=== PATIENT | male | born 1985 | race Caucasian/White ===

== ENCOUNTER 2017-01-26 12:27 | Outpatient (CLI) | payer OTHER ==
[2017-01-26 13:11] LABS: Bilirubin Negative (Negative); Blood, Urine Trace (Negative); Clarity Clear (Clear); Glucose, Urine (Dipstick) Negative (Negative); Leukocyte Negative (Negative); Nitrite Negative (Negative); Protein, Urine (Dipstick) Negative (Neg-Trace); Specific Gravity, Urine 1.025 (1.005-1.030)
[2017-01-26 13:12] LABS: #Basophils 0.1 thou/uL (0.0-0.2); #Eosinphils 0.2 thou/uL (0.0-0.7); #Lymphocytes 1.5 thou/uL (1.20-3.40); #Monocytes 0.5 thou/uL (0.11-0.59); #Neutrophils 3.5 thou/uL (1.40-6.50); %Basophils 1.1 % (0.0-1.0); %Eosinophils 3.9 % (0.0-10.0); %Lymphocytes 26.1 % (21.0-51.0); %Monocytes 8.8 % (0.0-10.0); Hemoglobin 15.9 g/dL (14.0-18.0); Mean Corpuscular HGB CONC 35.3 g/dL (32.0-36.0); Mean Corpuscular Hemoglobin 30.4 pg (27.0-31.0); Mean Corpuscular Volume 86.2 fl (80.0-94.0); Mean Platelet Volume 7.1 fL (7.4-10.4); Platelet Count 246 thou/uL (130-400); RBC Distribution Width 11.4 % (11.5-14.5); Red Blood Cell (RBC) Count 5.23 mill/uL (4.70-6.10); White Blood Cell (WBC) Count 5.9 thou/uL (4.8-10.8)
[2017-01-26 13:24] LABS: ALT (SGPT) 10 U/L (0-55); AST (SGOT) 19 U/L (5-34); Albumin 4.3 g/dL (3.5-5.0); Alkaline Phosphatase 64 U/L (40-150); Anion Gap 14 mmol/L (10-20); BUN (Urea Nitrogen) 10 mg/dL (8.9-20.6); Bilirubin, Total 0.4 mg/dL (0.2-1.2); Calc. Creatinine Clearance 0 mL/min (70-130); Calcium 8.9 mg/dL (7.8-10.44); Carbon Dioxide 24 mmol/L (22-29); Chloride 105 mmol/L (98-107); Estimated GFR-MDRD Greater than 90; Globulin 2.5 g/dL (2.4-3.5); Glucose 92 mg/dL (70-105); Protein, Total 6.8 g/dL (6.0-8.3); Sodium 139 mmol/L (136-145)
[2017-01-26 13:55] LABS: RBC/HPF 0-3 HPF (0-3)
[2017-01-26 13:56] LABS: Bacteria/HPF Rare-Few HPF (None Seen); Squamous Epithelial 0-3 HPF (0-3); WBC/HPF 0-3 HPF (0-3)
[2017-01-26 17:28] LABS: HBCM Index 0.06 S/CO (0-0.79); HBSAg Index 0.35 S/CO (0-0.99); Hep A IgM AB Non-Reactive (NonReactive); Hep A IgM S/CO 0.12 S/CO (0-0.79); Hep B Surf Ag Non-Reactive S/CO (NonReactive); Hep C IgG Ab Non-Reactive (NonReactive); Hep C Index 0.25 S/CO (0-0.79); Hepatitis B Core IGM Abs Non-Reactive (NonReactive)
== END 2017-01-26 12:28 | disposition home or self-care (01) ==
LOC: MADLABBHPM 12:27
PROVIDERS: ATTEND Family Medicine
DX: R10.13 Epigastric pain (principal)
CPT/HCPCS: 36415; 80053; 80074; 81001; 85025; 86677; 87086

== ENCOUNTER 2020-08-15 18:46 | Emergency (ER) | payer OTHER, SELFPAY ==
[2020-08-15] MEDS ORDERED: Boostrix 0.5 ML (Tdap) VIAL ONE (19:26)
[2020-08-15] MEDS ORDERED: Acetaminophen 500 MG TAB ONE (19:26)
--- NOTE | 2020-08-15 19:54 | RAD ---
Radiograph left hand 3 views: 08/15/2020 HISTORY: 35-year-old male with traumatic left hand pain FINDINGS: Nonspecific lucencies at the proximal pole and waist of the navicular bone, nonspecific. No other osseous abnormality. The joints appear normal. No dislocation. IMPRESSION: 1.) Nonspecific lucencies at the scaphoid bone. Fracture is a possibility. 2) the rest of the hand is normal
--- NOTE | 2020-08-15 19:56 | RAD ---
Radiograph left wrist 4 views: DATE: 08/15/2020 Time: 7:45 PM HISTORY: 35-year-old male with acute, traumatic wrist pain FINDINGS: There are irregularly-shaped lucencies at the waist of the navicular and proximal pole of the navicul ar. No other osseous abnormality is identified. Alignment is normal. The joints appear normal. IMPRESSION: Nonspecific hypodensities in the scaphoid bone. Etiology uncertain. Fracture is not excluded. Conside r noncontrast CT of the wrist, if there is snuffbox tenderness.
--- NOTE | 2020-08-15 20:39 | CT ---
CT left wrist noncontrast: 08/15/2020 HISTORY: 35-year-old male with acute, traumatic left wrist pain. Abnormal plain radiograph. FINDINGS: There is a comminuted fracture of the navicular bone, with mild and moderate displacement of multiple fragments. This includes fracture of the waist resulting in dorsal displacement and rotation of the large proximal pole fragment. There is a nondisplaced distal pole component. No dislocation. No f racture of the other bones. IMPRESSION: Acute, traumatic, comminuted, and displaced fractures of the scaphoid bone.
== END 2020-08-15 21:29 | disposition home or self-care (01) ==
LOC: MADERS 18:46
DX: S62.015A Nondisplaced fracture of distal pole of navicular [scaphoid] bone of left wrist, initial encounter for closed fracture (principal); J30.2 Other seasonal allergic rhinitis; V69.9XXA Occupant (driver) (passenger) of heavy transport vehicle injured in unspecified traffic accident, initial encounter
CPT/HCPCS: 29125; 90471; 90715